=== PATIENT | male | born 1980 | race Caucasian/White ===

== ENCOUNTER 2019-10-13 10:21 | Emergency (ER) | payer OTHER, MEDICAID ==
[~2019-10-13] VITALS: Ht 175.3 cm; Wt 77.0 kg
[2019-10-13] MEDS ORDERED: ZYDS20 PO (10:29)
[2019-10-13] MEDS ORDERED: DIVA500T3 PO (10:29)
[2019-10-13] MEDS ORDERED: SODIUM CHLORIDE 0.9% 1,000 ML IV ONE ×2 (12:37→16:53)
[2019-10-13 14:36] LABS: CHLORIDE 104 mEq/L (98-107)
[2019-10-13] MEDS ORDERED: PIPERACILLIN/TAZ 3.375G PREMIX 50 ML IV ONE (14:45)
[2019-10-13] MEDS ORDERED: VANCOMYCIN 1 G PREMIX 200 ML IV SCH (14:45)
[2019-10-13 17:28] LABS: BASOPHILS % 0.7 % (0.0-2.0); EOSINOPHILS % 0.6 % (0.0-5.0); HEMATOCRIT. 41.6 % (42.0-52.0); HEMOGLOBIN. 14.4 g/dL (14.0-18.0); LYMPHOCYTES % 24.1 % (20.0-50.0); MEAN CORPUSCULAR HEMOGLOBIN 34.9 pg (28.0-32.0); MEAN CORPUSCULAR VOLUME 100.7 fL (80.0-94.0); MEAN PLATELET VOLUME 7.8 fl (7.4-10.4); MONOCYTES % 13.7 % (2.0-8.0); NEUTROPHILS % 60.9 % (40.0-76.0); PLATELET 198 x1000/uL (130-400); RED BLOOD CELL COUNT 4.13 mill/uL (4.7-6.1); RED CELL DISTRIBUTION WIDTH 12.7 % (11.6-14.6)
[2019-10-13] MEDS ORDERED: IOHEXOL-300 100 ML BOTTLE ONE (23:15)
[2019-10-14] MEDS: PIPERACILLIN/TAZ 3.375G PREMIX 50 ML IV SCH ×3 (06:25→14:55)
[2019-10-15 00:34] VITALS: BP 121/80
== END 2019-10-15 00:49 | disposition short-term general hospital (02) ==
LOC: MERGE 10:21 → ER 10:21
DX: K04.7 Periapical abscess without sinus (principal); Z20.828 Contact with and (suspected) exposure to other viral communicable diseases; F15.20 Other stimulant dependence, uncomplicated
CPT/HCPCS: 36415; 70487; 80053; 83605; 85025; 87040; 87635; 96361; 96365; 96366; 96368; 96375; 99285; J2543; J3370; J7030; Q9967